=== PATIENT | male | born 1965 | race Caucasian/White ===

== ENCOUNTER → 2016-09-23 | Outpatient (CLI) | payer OTHER ==
[~2016-09-23] MED LIST: KETO10TA PO; MULT-506 PO; OXYC-57 PO
[2016-09-23 15:28] LABS: BASO % 0.4 %; BASO ABS # 0.02 K/uL (0-0.2); COMPLETE YES; EOS % 0.5 %; HEMATOCRIT 45.6 % (42-52); IG% 0.4 %; LYMPH % 26.9 %; LYMPH ABS # 1.52 K/uL (1.2-3.4); MEAN CELL VOLUME 82.8 fL (80-100); MEAN CORPUSCULAR HEMOGLOBIN 28.9 pg (25-34); MEAN CORPUSCULAR HGB CONC 34.9 g/dl (32-36); MEAN PLATELET VOLUME 10.2 fL (7.4-10.4); MONO % 10.4 %; NEUT % 61.4 %; PLATELET COUNT 171 K/uL (130-400); RED BLOOD COUNT 5.51 M/uL (4.7-6.1); WHITE BLOOD COUNT 5.65 K/uL (4.8-10.8)
[2016-09-23 15:45] LABS: BLOOD UREA NITROGEN 21 mg/dl (7-18); BUN/CREATININE RATIO 19.4 (10-20); CALCIUM 9.3 mg/dl (8.5-10.1); CARBON DIOXIDE 30 mmol/L (21-32); CHLORIDE 104 mmol/L (98-107); GLUCOSE 82 mg/dl (70-99); SODIUM 143 mmol/L (136-145)
== END | disposition home or self-care (01) ==
LOC: C.CPL 14:54
PROVIDERS: ATTEND Orthopaedic Surgery
DX: Z01.810 Encounter for preprocedural cardiovascular examination (principal); Z01.812 Encounter for preprocedural laboratory examination; M75.121 Complete rotator cuff tear or rupture of right shoulder, not specified as traumatic

== ENCOUNTER → 2016-10-02 | Day surgery (SDC) | payer OTHER ==
[2016-09-25 09:47] VITALS: Ht 185.4 cm; Wt 118.2 kg
[~2016-10-02] VITALS: Ht 185.4 cm; Wt 118.2 kg
[~2016-10-02] MED LIST changes: +ATROPINE SULFATE 0.1 MG/ML 5ML SYR IV PRN; +BUPIVACAINE/EPINEPHRINE 0.25% 1:200,000 30 ML VIAL ONE; +CEFAZOLIN 2000 MG/60 ML D5W IV SCH; +DEXAMETHASONE SOD INJ 4 MG/ML VIAL IV PRN; +DEXAMETHASONE SOD INJ 4 MG/ML VIAL ONE; +EpHEDrine SULFATE 50MG/5ML SYR ONE; +EpHEDrine SULFATE INJ 50 MG/ML AMP IV PRN; +EpINEphrine INJ 1MG/ML AMP 1 MG/ML AMP ONE; +FENTANYL CITRATE INJ 50 MCG/1 ML 2 ML VIAL IV PRN; +FENTANYL CITRATE INJ 50 MCG/1 ML 2 ML VIAL ONE; +KETOROLAC TROMETHAMINE 30 MG/ML VIAL IV. PRN; +LABETALOL HCL IV 5 MG/ML 20ML IV PRN; +LACTATED RINGER'S 1000ML 1,000 ML IV SCH; +LIDOCAINE HCL 1% MPF 2 ML VIAL ONE; +LIDOCAINE HCL 2% 2 ML VIAL (20MG/ML) ONE; +METOCLOPRAMIDE HCL INJ 5 MG/ML 2 ML VIAL IV PRN; +MIDAZOLAM HCL 1 MG/ML 2ML VIAL ONE; +MoRPHine SULFATE 10 MG/ML CARP/VIAL IV PRN; +ONDANSETRON INJ 2 MG/ML 2 ML VIAL IV PRN; +ONDANSETRON INJ 2 MG/ML 2 ML VIAL ONE; +OXYCODONE/ACETAMINOPHEN 5-325 TAB PO PRN; +PHENYLEPHRINE 100MCG/ML 5ML SYR IV PRN; +PROPOFOL IV EMULSION 10 MG/ML 20 ML VIAL IV ONE; +ROPIVACAINE 0.5% 5 MG/ML 30 ML VIAL ONE; +SODIUM CHLORIDE 0.9% 1000ML 1,000 ML IV SCH
--- NOTE | 2016-10-02 09:55 | History & Physical Bridge - [place] ---
H&P Re-Evaluation Bridge Note: I have examined the patient, reviewed the History & Physical and in the interval since the performance of the History & Physical I have noted the following changes of clinical significance: No changes noted
--- NOTE | 2016-10-02 15:01 | [facility] Post Operative Brief Note ---
Immediate Operative Summary Operative Date Oct 02, 2016. Pre-Operative Diagnosis Right Shoulder Full Thickness Rotator Cuff Tear Post-Operative Diagnosis Same Procedure(s) Performed Right Shoulder Arthroscopy, Large Rotator Cuff Repair, Open Biceps Tenodesis Surgeon Dr Avalos Bureau Director Surgeon(s) Elvis Manning PA-C Estimated Blood Loss 5ml Findings as above Specimens None Complication(s) None Disposition Recovery Room / PACU
--- NOTE | 2016-10-02 15:25 | OPERATIVE REPORT ---
DATE OF OPERATION: 10/02/2016 PREOPERATIVE DIAGNOSIS: Traumatic rotator cuff tear of the right shoulder. POSTOPERATIVE DIAGNOSIS: Same. PROCEDURES: Right shoulder diagnostic arthroscopy with limited debridement, acromioplasty, medium sized L-shaped traumatic rotator cuff tear with extension up the anterior interval rotator cuff repair and open subpectoral biceps tenodesis. SURGEON: Dr. Fransico Avalos. STOCK DRIVER: Elvis Manning PA-C, whose assistance was necessary for positioning the arm and helping with instrumentation. ANESTHESIA: General with a right interscalene nerve block. COMPLICATIONS: None. CONDITION: Stable to PACU. INDICATIONS: Preston is a pleasant 51-year-old male who presented to my office with complaints of right shoulder pain. He has been having shoulder pain for years. He had a known small rotator cuff tear, but was then playing basketball and felt a big pop in his shoulder. A repeat MRI showed a retracted rotator cuff tear. He elected to undergo arthroscopy. DESCRIPTION OF PROCEDURE: On 10/02/2016, he arrived at [facility] for the above procedure. He was seen in the preoperative holding area and the operative extremity was identified and signed. He was given a preoperative antibiotic, taken back to the operating room, laid on the table in supine position and put under general anesthesia. The right arm was then prepped and draped in sterile fashion. Time-out was done and the patient and operative extremity was properly identified. A scope was introduced into the posterior portal. Diagnostic arthroscopy showed no cartilage damage to the humeral head or the glenoid. The subscapularis was intact. The infraspinatus and teres minor were intact. There was a tear of the entire supraspinatus that ran up the anterior interval. The tear was just off the articular footprint. It was a full thickness tear, but about 60% of the footprint still had tendon attached to it. An anterior portal was made. A shaver was used to do a limited debridement of the intraarticular structures and the biceps tendon was arthroscopically tenotomized. The scope was then put into the subacromial space. A lateral portal was made. A shaver was used to do a complete subacromial and subdeltoid bursectomy. An ablator was used to tease the coracoacromial ligament off the undersurface of the acromion and a 5-0 janice was used to complete an acromioplasty of a Bigliani type 3 acromion. A shaver was used to remove any excess debris and attention was turned to the rotator cuff. An additional anterolateral portal was made and Dior cannulas were placed in each of the lateral portals. The articular portion of the footprint was prepared with a ring curette and a microfracture. A tag stitch was placed in the tendon to pull it down to its anatomic position. The rotator cuff was then fixed with an Arthrex SpeedBridge configuration with 4.75-mm BioComposite SwiveLock suture anchors. The anterior lateral corner was tagged with a FiberTape and brought down to a single SwiveLock placed in the bicipital groove. A single FiberWire was then placed across the lateral rotator interval to bring everything together nicely. Multiple pictures were taken. The scope was placed back into the glenohumeral joint and the articular margin of the rotator cuff had been restored and I was very happy with my tension. Arthroscopic instruments were removed from the shoulder. Attention was turned to an open biceps tenodesis. A small incision was made over the inferior border of the pec major. Dissection was taken down through the fascia and long head of biceps tendon was delivered out of the wound. The tendon was then whipstitched at the anticipated level of tenodesis and the remaining tendon was discarded. A 6-mm hole was drilled in the bicipital groove and the biceps tendon was tenodesed with an Arthrex biceps button that was passed through the posterior cortex in a tension slide technique to deliver the tendon into the 6-mm hole. This gave good fixation. The wound was then irrigated and closed with 3-0 Vicryl and running 3-0 Monocryl. Steri-strips were placed. Portal sites were closed with 3-0 nylon. He was then placed in a soft dressing and an abduction arm sling. He was then extubated, transferred to a [facility] and taken to the postanesthesia care unit in stable condition. He tolerated the procedure well. I attest to the content of the Intraoperative Record and any orders documented therein. Any exceptio ns are noted below.
--- NOTE | 2016-10-02 15:31 | Discharge Instructions-SurgCtr ---
Discharge Instructions Visit Reason for Visit: Right Shoulder Rotator Cuff Tear, Pain Discharge Discharge Diagnosis / Problem: SAME ABOVE Discharge Goals Goal(s): Decrease discomfort, Improve function Activity Recommendations Activity Limitations: as noted below Lifting Limitations: until after follow-up appointment Exercise/Sports Limitations: until after follow-up appointment Driving or Machine Use: WHEN OUT OF THE SLING Anesthesia . Post Anesthesia Instructions: If you have had General Anesthesia or IV Sedation: * Do not drive today. * Resume driving when surgeon permits. * Do not make important decisions or sign legal documents today. * Call surgeon for: 1. Temperature elevations greater than 101 degrees F. 2. Uncontrollable pain. 3. Excessive bleeding. 4. Persistent nausea and vomiting. 5. Medication intolerance (nausea, vomiting or rash). * For nausea and vomiting use only clear liquids such as: tea, soda, bouillon until nausea subsides, then gradually increase diet as tolerated. * If you have any concerns or questions, call your surgeon's office. If physician is unavailable and it is an emergency, call 911 or go to the nearest emergency room. . Instructions / Follow-Up Instructions / Follow-Up MEDICATIONS: * Resume previous medications unless instructed otherwise by your surgeon. * Always take pain medication on a full stomach or with food to avoid upset stomach. * Do not drink alcohol or drive while taking narcotics. * Ibuprofen or Tylenol may be taken if narcotic not needed. SPECIAL CARE INSTRUCTIONS: __ None _X_ Keep extremity elevated and iced x 48 hours; apply ice 20-30 minutes 8-10 times/day. May remove at night. __ Sling __24 hrs/day __ Remove at night _X_ Shoulder Immobilizer (MAY REMOVE AFTER 48 HOURS ONLY TO SHOWER AND FOR THERAPY) _X_ 24 hrs/day __ Remove at night _X_ Dressing __ Maintain until seen in office, may shower with plastic over site _X_ Remove dressings in 24-48 hours and then may shower _X_ Cover incisions with band-aids after showering _X_ Do not remove steri-strips (THEY MAY FALL OFF ON THEIR OWN) Call physician if chills or temperature rises above 102 degrees or pain unrelieved by prescribed pain medications at . . Diet Recommendations Home Diet: no limitations Fluid Restriction: None Procedures Procedures Performed: Right Shoulder Arthroscopy, Large Rotator Cuff Repair, Open Biceps Tenodesis Pending Studies Studies pending at discharge: no Work Instructions Return To Work: after follow-up Lifting Limitations: NO LIFTING WITH RIGHT ARM Medical Emergencies . Who to Call and When: Medical Emergencies: If at any time you feel your situation is an emergency, please call 911 immediately. . Non-Emergent Contact Non-Emergency issues call your: Primary Care Provider Call Non-Emergent contact if: you have a fever, temperature is above 101.5 . . "Provider Documentation" section prepared by Jhonatan Manning.
--- NOTE | 2016-10-02 16:03 | Anesthesia Progress Nt - [facility] ---
Anesthesia Post Op Note Date & Time Oct 02, 2016 at 16:03 Vital Signs Pain Intensity: 0 Vital Signs Past 12 Hours Date Time Temp Pulse Resp B/P Pulse Ox O2 Delivery O2 Flow Rate FiO2 10/02/16 15:58 88 22 92 10/02/16 15:58 88 22 10/02/16 15:54 139/94 10/02/16 15:53 86 15 93 10/02/16 15:53 87 15 10/02/16 15:49 132/89 10/02/16 15:48 88 18 92 10/02/16 15:48 88 18 10/02/16 15:44 132/94 10/02/16 15:43 86 18 98 10/02/16 15:43 86 18 10/02/16 15:39 136/90 10/02/16 15:38 85 18 10/02/16 15:38 86 18 97 10/02/16 15:34 130/88 10/02/16 15:33 86 19 10/02/16 15:33 86 19 97 10/02/16 15:29 127/87 10/02/16 15:28 91 19 10/02/16 15:28 91 19 97 10/02/16 15:24 130/92 10/02/16 15:23 87 17 10/02/16 15:23 86 17 97 10/02/16 15:19 127/95 10/02/16 15:18 90 18 10/02/16 15:18 88 18 96 10/02/16 15:14 143/94 10/02/16 15:13 36.2 93 20 136/93 96 Mask 6 10/02/16 15:13 91 18 10/02/16 15:13 90 18 96 10/02/16 15:12 136/93 10/02/16 12:33 88 23 96 10/02/16 12:33 88 10/02/16 12:32 88 21 96 10/02/16 12:32 87 10/02/16 12:31 86 23 96 10/02/16 12:31 84 10/02/16 12:30 85 10/02/16 12:30 85 23 97 10/02/16 12:26 129/87 10/02/16 12:25 80 19 97 10/02/16 12:25 82 10/02/16 12:20 85 21 96 10/02/16 12:20 86 10/02/16 12:15 75 10/02/16 12:15 75 18 97 10/02/16 12:12 151/101 10/02/16 10:59 36.8 71 16 148/103 97 Room Air Notes Mental Status: alert / awake / arousable, participated in evaluation Pt Amnestic to Procedure: Yes Nausea / Vomiting: adequately controlled Pain: adequately controlled Airway Patency, RR, SpO2: stable & adequate BP & HR: stable & adequate Hydration State: stable & adequate Anesthetic Complications: no major complications apparent
[2016-10-02 16:29] VITALS: TEMP 36.4
[2016-10-02 16:48] VITALS: BP 121/81; PULSE 88; O2SAT 92
== END | disposition home or self-care (01) ==
LOC: X.SURG 10:38
PROVIDERS: ATTEND Orthopaedic Surgery
DX: S43.421A Sprain of right rotator cuff capsule, initial encounter (principal); X58.XXXA Exposure to other specified factors, initial encounter; Y93.89 Activity, other specified; Y92.89 Other specified places as the place of occurrence of the external cause; Y99.8 Other external cause status